=== PATIENT | female | born 1985 | race Caucasian/White ===

== ENCOUNTER 2021-01-22 11:15 | Emergency (ER) | payer OTHER ==
[~2021-01-22] VITALS: Ht 157.5 cm; Wt 63.5 kg
[2021-01-22] MEDS ORDERED: ZOLOFT50 M1 PO (11:30)
[2021-01-22 11:32] VITALS: BP 123/70
[2021-01-22] MEDS ORDERED: FLEXERIL PO (13:33)
[2021-01-22] MEDS ORDERED: IBU600 MG PO (13:33)
== END 2021-01-22 13:50 | disposition home or self-care (01) ==
LOC: ER 11:15
DX: S63.501A Unspecified sprain of right wrist, initial encounter (principal); S50.11XA Contusion of right forearm, initial encounter; S80.811A Abrasion, right lower leg, initial encounter; S80.812A Abrasion, left lower leg, initial encounter; F32.9 Major depressive disorder, single episode, unspecified; Z79.899 Other long term (current) drug therapy; V43.52XA Car driver injured in collision with other type car in traffic accident, initial encounter; Y93.89 Activity, other specified; Y92.89 Other specified places as the place of occurrence of the external cause; Y99.8 Other external cause status